=== PATIENT | male | born 1955 | race Caucasian/White ===

== ENCOUNTER 2016-11-24 06:25 | Inpatient (IN) | payer BC, OTHER ==
[2016-11-06 10:47] VITALS: BMI 27.0
--- NOTE | 2016-11-06 11:13 | PAT Medication Instructions ---
Service Date November 06, 2016. Current Home Medication List Dutasteride-Tamsulosin Hcl (Justyna), 1 TAB PO QPM Mometasone Furoate (Asmanex 120 Metered Doses), 1 PUFF INH HS Naproxen (Aleve), 220 MG PO BID PRN for Pain [Relief Packet], 1 PKT PO BID Medication Instructions For Your Scheduled Surgery - Hold the following medications 2 weeks prior to surgery: Relief Packet 1 PKT PO BID - Hold the following medications 7-10 days prior to surgery per surgeon instructions: Naproxen (Aleve), 220 MG PO BID PRN for Pain - Take the following medications the morning of surgery with a sip of water: Tylenol (if needed) - Take the following medications as scheduled the night before surgery: Dutasteride-Tamsulosin Hcl (Justyna), 1 TAB PO QPM Mometasone Furoate (Asmanex 120 Metered Doses), 1 PUFF INH HS Tylenol (if needed) If you have any questions please call us at [phone] or [phone] ( [place]) or [phone]
--- NOTE | 2016-11-06 12:04 | DIAGNOSTIC IMAGING REPORT ---
TWO VIEW CHEST CLINICAL HISTORY: Preoperative examination. FINDINGS: PA and lateral chest radiographs are compared to study dated 11/23/2012. The cardiomediastinal silhouette is unremarkable. There is atherosclerotic calcification of the thoracic aorta. The lungs appear hyperinflated and hyperlucent with flattening the diaphragm. There is increased retrosternal clear space and the appearance suggests obstructive physiology. Airspace consolidation or pleural effusion is identified. There is no pneumothorax. The skeletal structures appear osteopenic. Degenerative change and scoliosis are noted in the thoracic spine. IMPRESSION: Findings suggest obstructive physiology. There is no active disease in the chest. Electronically signed by: Maykel Mills M.D. 11/06/2016 12:03 PM Dictated Date/Time: 11/06/2016 12:02 PM
[2016-11-06 12:45] LABS: BASO % 0.6 %; BASO ABS # 0.04 K/uL (0-0.2); COMPLETE YES; EOS % 4.6 %; HEMATOCRIT 44.2 % (42-52); IG% 0.3 %; LYMPH % 24.7 %; LYMPH ABS # 1.63 K/uL (1.2-3.4); MEAN CELL VOLUME 92.9 fL (80-100); MEAN CORPUSCULAR HEMOGLOBIN 31.5 pg (25-34); MEAN CORPUSCULAR HGB CONC 33.9 g/dl (32-36); MEAN PLATELET VOLUME 9.8 fL (7.4-10.4); MONO % 12.1 %; NEUT % 57.7 %; PLATELET COUNT 236 K/uL (130-400); RED BLOOD COUNT 4.76 M/uL (4.7-6.1); WHITE BLOOD COUNT 6.59 K/uL (4.8-10.8)
[2016-11-06 12:59] LABS: PROTHROMBIN TIME (PATIENT) 10.5 SECONDS (9.0-12.0)
[2016-11-06 13:01] LABS: URINE APPEARANCE CLEAR (CLEAR); URINE BILIRUBIN NEG (NEG); URINE COLOR YELLOW; URINE NITRITE NEG (NEG); URINE PH 5.5 (4.5-7.5); URINE SPECIFIC GRAVITY 1.027 (1.000-1.030); UROBILINOGEN NEG (NEG); ZZUR CULT IF INDIC CLEAN CATCH NO
[2016-11-06 13:10] LABS: MANUAL MICROSCOPIC REQUIRED? NO; REVIEW REQ? NO
[2016-11-06 13:20] LABS: BUN/CREATININE RATIO 25.3 (10-20); CALCIUM 8.2 mg/dl (8.5-10.1); CREATININE 0.8 mg/dl (0.60-1.40); POTASSIUM 4.4 mmol/L (3.5-5.1)
--- NOTE | 2016-11-21 15:25 | HISTORY & PHYSICAL EXAMINATION ---
DATE OF ADMISSION: 11/24/2016 CHIEF COMPLAINT: Left hip pain. HISTORY OF PRESENT ILLNESS: Mr. Guillaume is a 61-year-old male with a multiple year history of left hip pain. He rates his pain at 10/10. He has pain with his daily activities. He has limited standing and walking tolerance. Pain is worse with weightbearing. The patient has had injections, NSAIDs and home exercise program. He has failed conservative treatment and is scheduled for left hip replacement. PAST MEDICAL HISTORY: Asthma. He denies heart disease, diabetes or DVT. PAST SURGICAL HISTORY: Tonsillectomy, appendectomy, bilateral knee replacement, and bilateral carpal tunnel repair. SOCIAL HISTORY: He rarely drinks alcohol. Denies tobacco use. He lives in a 2-story home. He is and works and self-employed as a contractor. FAMILY HISTORY: Positive for DVT in his brother. MEDICATIONS: 0.5 mg daily, Aleve 2 pills daily, Asmanex Twisthaler and lidocaine cream. ALLERGIES: SULFA. REVIEW OF SYSTEMS: See HPI. Ten other systems reviewed, all negative. PHYSICAL EXAMINATION: VITAL SIGNS: Height 5 feet 11 inches, weight 195 pounds, and BMI 27. GENERAL: This is a well-developed and well-nourished male who is alert and oriented x3. Mood and affect are appropriate. HEENT: Normocephalic and atraumatic. Mucous membranes are moist and intact. NECK: Supple without lymphadenopathy. HEART: Regular rate and rhythm without murmurs, rubs or gallops. LUNGS: Clear to auscultation without wheezes or rhonchi. ABDOMEN: Soft and nontender. Bowel sounds are equal and active. EXTREMITIES: No ecchymosis, redness or warmth. Thigh and calf are soft and nontender. Log roll of the hip reproduces the pain in the groin. Range of motion is decreased. He is neurovascularly intact with +5/5 strength. X-RAY EXAMINATION: AP and lateral views show joint space narrowing and osteophyte formation. IMPRESSION: Degenerative joint disease, left hip. PLAN: The patient will be admitted for a left total hip arthroplasty. We will plan on aspirin for DVT prophylaxis. MTDD
[2016-11-24] VITALS (9 sets, daily range): BP systolic 109–146; BP diastolic 69–73; PULSE 50–61; TEMP 36.3–36.7; O2SAT 95–97; Ht 180.3 cm; Wt 87.5 kg
[~2016-11-24] VITALS: Ht 180.3 cm; Wt 87.5 kg
[~2016-11-24 06:25] MED LIST: ACETAMINOPHEN 500 MG TAB PO SCH; CEFAZOLIN 2000 MG/60 ML D5W 60 ML IV SCH; DEXAMETHASONE 4 MG TAB PO SCH; DUTACAP PO; FAMOTIDINE 20 MG TAB PO SCH; GABAPENTIN 300 MG CAP PO SCH; LACTATED RINGER'S 1000ML 1,000 ML IV SCH; LACTATED RINGER'S 1000ML 500 ML IV ONE; LACTATED RINGER'S 1000ML IV SCH; METOCLOPRAMIDE HCL 10 MG TAB PO SCH; MOME220A INH; NAPR1TAB9 PO; OXYCODONE HCL 10 MG TABCR (OXYCONTIN) PO SCH; POLYMYXIN B SULFATE 100,000 UNITS in NSS 100ML IR SCH; RELIEF PO; ROPIVACAINE 5MG/ML 30 ML 150 MG, BUPIVACAINE/EPINEPHR 0.5% MPF 30 ML, KETOROLAC TROMETH... INFIL SCH; VANCOMYCIN INJ 400 MG in NSS 100ML IR SCH
[2016-11-24] MEDS ORDERED: BUPIVACAINE 0.5 % 5 MG/1 ML PF 10ML VIAL ONE (07:00)
[2016-11-24] MEDS ORDERED: MIDAZOLAM HCL 1 MG/ML 2ML VIAL ONE ×3 (07:20→14:47)
[2016-11-24] MEDS ORDERED: FENTANYL CITRATE INJ 50 MCG/1 ML 2 ML VIAL ONE (07:21)
[2016-11-24] MEDS ORDERED: ONDANSETRON INJ 2 MG/ML 2 ML VIAL IV PRN ×2 (07:30→11:15)
[2016-11-24] MEDS ORDERED: ATROPINE SULFATE 0.1 MG/ML 5ML SYR IV PRN (07:30)
[2016-11-24] MEDS ORDERED: FENTANYL CITRATE INJ 50 MCG/1 ML 2 ML VIAL IV PRN (07:30)
[2016-11-24] MEDS ORDERED: EpHEDrine SULFATE INJ 50 MG/ML AMP IV PRN (07:30)
--- NOTE | 2016-11-24 08:39 | History & Physical Bridge Note ---
H&P Re-Evaluation Bridge Note: I have examined the patient, reviewed the History & Physical and in the interval since the performance of the History & Physical I have noted the following changes of clinical significance: No changes noted
[2016-11-24] MEDS ORDERED: POVIDONE-IODINE OP SOLN 30 ML BTL ONE (09:13)
[2016-11-24] MEDS ORDERED: ORTHO JOINT ANESTHETIC ONE (09:13)
[2016-11-24] MEDS ORDERED: BACITRACIN 50000 UNIT VIAL ONE (09:13)
[2016-11-24] MEDS: TRANEXAMIC ACID INJ 1,000 MG in SODIUM CHLORIDE 0.9% 100ML 100 ML IV SCH ×2 (09:26→14:04)
--- NOTE | 2016-11-24 11:04 | [facility] Post Operative Brief Note ---
Immediate Operative Summary Operative Date Nov 24, 2016. Pre-Operative Diagnosis Left Hip Degenerative Joint Disease Post-Operative Diagnosis Left Hip Degenerative Joint Disease Procedure(s) Performed Left Total Hip Arthroplasty, Direct Anterior Approach Surgeon Dr. Eulalio Topete [employer] Surgeon(s) Julia Valdovinos PA-C Estimated Blood Loss 75mL Findings djd Specimens A: Left Femoral Head Complication(s) None Disposition Recovery Room / PACU
[2016-11-24] MEDS ORDERED: BISACODYL 10 MG SUPP PR PRN (11:15)
[2016-11-24] MEDS ORDERED: OXYCODONE HCL IR 5 MG TAB (IMMEDIATE RELEASE) PO PRN (11:15)
[2016-11-24] MEDS ORDERED: METOCLOPRAMIDE HCL INJ 5 MG/ML 2 ML VIAL IV PRN (11:15)
[2016-11-24] MEDS ORDERED: MAGNESIUM HYDROXIDE SUSP 30 ML UDC PO PRN (11:15)
[2016-11-24] MEDS ORDERED: ZOLPIDEM TARTRATE 5 MG TAB PO PRN (11:15)
[2016-11-24] MEDS ORDERED: DiphenhydrAMINE HCL 50 MG/ML VIAL IV PRN (11:15)
[2016-11-24] MEDS ORDERED: MoRPHine SULFATE 2 MG/ML CARP IV PRN (11:15)
[2016-11-24] MEDS ORDERED: TRAMADOL HCL 50 MG TAB PO PRN (11:15)
[2016-11-24] MEDS ORDERED: SOD PHOSPHATE/SOD BIPHOSPHATE ENEMA 132 ML BTL PR PRN (11:15)
[2016-11-24] MEDS ORDERED: ALUMINUM/MAGNESIUM/SIMETH (MAALOX MAX) 30 ML UDC PO PRN (11:15)
--- NOTE | 2016-11-24 11:53 | DIAGNOSTIC IMAGING REPORT ---
INTRAOPERATIVE LEFT HIP SINGLE VIEW CLINICAL HISTORY: Hip arthroplasty COMPARISON STUDY: No previous studies for comparison. FINDINGS: 13 seconds of fluoroscopic time was utilized. A single fluoroscopic spot image was provided for interpretation. There are postsurgical changes of a total left hip arthroplasty. There is no evidence of dislocation. IMPRESSION: Intraoperative radiograph demonstrating a total left hip arthroplasty. Electronically signed by: Mann Clemons M.D. 11/24/2016 11:52 AM Dictated Date/Time: 11/24/2016 11:51 AM
--- NOTE | 2016-11-24 12:05 | DIAGNOSTIC IMAGING REPORT ---
LEFT PELVIS/UNILATERAL HIP 1 VIEW CLINICAL HISTORY: IN PACU - A/P PELVIS and LATERAL HIP INCLUDING ALL OF IMPLANT postoperative change COMPARISON: None. DISCUSSION: Evidence for a total left hip prosthetic. Good contact between metallic prosthetic and underlying bone. Lucency traversing the mid inferior aspect of the left pubic ring. Although possible secondary to overlap artifact, nondisplaced cortical fracture must be considered. Oblique filming of the a pelvic region is suggested. There is no evidence for soft tissue swelling. IMPRESSION: 1. Total left hip prosthetic in good position. 2. Artifact versus nondisplaced cortical fracture left pubic ring. Oblique images of the pelvis are suggested as follow-up. Electronically signed by: Helder Bradley M.D. 11/24/2016 12:04 PM Dictated Date/Time: 11/24/2016 12:02 PM
--- NOTE | 2016-11-24 12:49 | Anesthesiology Progress Note ---
Anesthesia Post Op Note Date & Time Nov 24, 2016 at 12:49 Vital Signs Pain Intensity: 0 Vital Signs Past 12 Hours Date Time Temp Pulse Resp B/P (MAP) Pulse Ox O2 Delivery O2 Flow Rate FiO2 11/24/16 12:36 97/57 11/24/16 12:35 52 17 98 11/24/16 12:35 52 17 11/24/16 12:31 100/54 11/24/16 12:30 50 15 11/24/16 12:30 49 15 99 11/24/16 12:26 92/50 11/24/16 12:25 53 14 11/24/16 12:25 52 14 98 11/24/16 12:21 109/57 11/24/16 12:20 59 11 99 11/24/16 12:20 59 11 11/24/16 12:16 102/57 11/24/16 12:15 48 14 11/24/16 12:15 47 14 99 11/24/16 12:11 100/58 11/24/16 12:10 50 17 11/24/16 12:10 53 17 99 11/24/16 12:06 98/55 11/24/16 12:05 58 14 99 11/24/16 12:05 56 14 11/24/16 12:02 94/55 11/24/16 12:01 72/56 11/24/16 12:00 51 14 98 11/24/16 12:00 53 14 11/24/16 11:59 56 13 99 11/24/16 11:59 58 13 11/24/16 11:56 116/59 11/24/16 11:54 50 14 98 11/24/16 11:54 47 14 11/24/16 11:51 105/67 11/24/16 11:49 51 16 98 11/24/16 11:49 51 16 11/24/16 11:46 109/68 11/24/16 11:44 54 15 11/24/16 11:44 49 15 99 11/24/16 11:41 101/62 11/24/16 11:39 54 15 11/24/16 11:39 56 15 100 11/24/16 11:36 113/57 11/24/16 11:34 53 12 11/24/16 11:34 53 12 100 11/24/16 11:31 104/57 11/24/16 11:29 66 16 94 11/24/16 11:29 63 16 11/24/16 11:26 121/65 11/24/16 11:25 119/70 11/24/16 11:24 70 96 11/24/16 11:24 36.6 70 12 119/70 96 Mask 10 11/24/16 11:24 70 11/24/16 07:08 36.6 59 18 146/72 Room Air 98 Notes Mental Status: alert / awake / arousable, participated in evaluation Pt Amnestic to Procedure: Yes Nausea / Vomiting: adequately controlled Pain: adequately controlled Airway Patency, RR, SpO2: stable & adequate BP & HR: stable & adequate Hydration State: stable & adequate Neuraxial Anesthesia: was administered, sensory block is resolving Anesthetic Complications: no major complications apparent
[2016-11-24] MEDS: D5W AND 1/2NSS + 20MEQ KCL 1,000 ML IV SCH (13:52)
[2016-11-24] MEDS ORDERED: PROPOFOL IV EMULSION 10 MG/ML 20 ML VIAL IV ONE (14:48)
[2016-11-24] MEDS: KETOROLAC TROMETHAMINE 30 MG/ML VIAL IV. SCH ×2 (15:30→21:06)
[2016-11-24] MEDS ORDERED: TRANEXAMIC ACID INJ 1,000 MG in SODIUM CHLORIDE 0.9% 100ML 100 ML IV ONE (17:00)
--- NOTE | 2016-11-24 17:34 | OPERATIVE REPORT ---
DATE OF OPERATION: 11/24/2016 PREOPERATIVE DIAGNOSIS: Degenerative arthritis, left hip. POSTOPERATIVE DIAGNOSIS: Same. PROCEDURE: Left total hip replacement. SURGEON: Eulalio Topete MD CERTIFIED RESIDENTIAL MEDICATION AIDE: LISA Norris ANESTHESIA: Spinal. BLOOD LOSS: 75 mL. REPLACEMENT FLUIDS: 1800 mL of crystalloid. DRAINS: Hemovacs x2. CULTURES: None. COMPLICATIONS: None. COMPONENTS USED: [employer] Polar hip system: Acetabulum size 52, femur size 6 standard offset, femoral head 0, and neck length 36 mm. NOTE: LISA Norris was present and assisted throughout due to the complicated nature of this case. She helped with preparation and set up, first assisted throughout and personally closed the fascial, subcutaneous and skin layers and applied the postoperative dressing. DESCRIPTION OF PROCEDURE: Following satisfactory spinal, the patient was supine. The left leg was placed in traction and the right leg in the well leg murillo. The left leg was prepared with ChloraPrep and draped sterilely. Following a surgical time-out, an anterior approach was performed in the interval between the sartorius and tensor muscles. Circumflex femoral vessels were identified and ligated. An anterior capsulotomy was performed exposing the arthritic femoral neck and head. Femoral neck and head were trimmed and removed. The acetabular self-retaining retractor was placed. Acetabular reaming was completed and a 52 shell was impacted into an anatomic position under fluoroscopy and secured with a dome screw. Local anesthetic was placed followed by irrigation and a polyethylene liner. A large inferior osteophyte was removed. The femur was placed in a position of external rotation, extension and adduction. Femoral canal was sounded and prepared up to a size 6. A trial reduction with a 0 neck length head using fluoroscopy showed good fit and fill of the proximal canal and yarsanism of leg lengths using fluoroscopy for landmarks. The hip was dislocated. The trial component was removed. The final implant was placed. The hip was irrigated and reduced. Fluoroscopy confirmed similar position. A Betadine soak was performed. After 3 minutes, the Betadine was irrigated. The capsule was closed with 1-0 Vicryl interrupted. A drain was placed. The fascia was closed with a running suture of 1 Vicryl, the subcutaneous tissues with 2-0 Vicryl and skin with a running subcuticular stitch of 3-0 V-Loc. Dermabond and a dry dressing were applied. The patient was returned to his bed in stable condition. I attest to the content of the Intraoperative Record and any orders documented therein. Any exception s are noted below.
[2016-11-24] MEDS: CEFAZOLIN IV 2,000 MG in DEXTROSE 5% 50ML 50 ML IV SCH (19:01)
[2016-11-24] MEDS ORDERED: MOMETASONE FUROATE 14 PUFF/1 INHALER INH SCH (21:00)
[2016-11-24] MEDS ORDERED: SENNA 8.6 MG TAB PO SCH (21:00)
[2016-11-24] MEDS: ACETAMINOPHEN 500 MG TAB PO SCH (21:07)
[2016-11-24] MEDS: ASPIRIN 81 MG ECTAB PO SCH (21:08)
[2016-11-25] MEDS: D5W AND 1/2NSS + 20MEQ KCL 1,000 ML IV SCH ×2 (00:14→08:17)
[2016-11-25] MEDS: CEFAZOLIN IV 2,000 MG in DEXTROSE 5% 50ML 50 ML IV SCH (02:21)
[2016-11-25 02:49] VITALS: BP 121/65; PULSE 62; TEMP 36.9; O2SAT 98
[2016-11-25] MEDS: KETOROLAC TROMETHAMINE 30 MG/ML VIAL IV. SCH ×2 (04:16→09:55)
[2016-11-25] MEDS: ACETAMINOPHEN 500 MG TAB PO SCH ×2 (05:43→14:00)
[2016-11-25 07:31] LABS: BASO % 0.1 %; BASO ABS # 0.01 K/uL (0-0.2); COMPLETE YES; EOS % 0.5 %; HEMATOCRIT 40.2 % (42-52); IG% 0.3 %; LYMPH % 10.4 %; LYMPH ABS # 1.56 K/uL (1.2-3.4); MEAN CORPUSCULAR HGB CONC 34.8 g/dl (32-36); MEAN PLATELET VOLUME 9.3 fL (7.4-10.4); MONO % 11.9 %; NEUT % 76.8 %; PLATELET COUNT 228 K/uL (130-400); RED BLOOD COUNT 4.37 M/uL (4.7-6.1); WHITE BLOOD COUNT 14.96 K/uL (4.8-10.8)
[2016-11-25 08:02] VITALS: BP 130/70; PULSE 53; TEMP 36.6; O2SAT 99
[2016-11-25] MEDS ORDERED: ACET-1138 PO (08:02)
[2016-11-25] MEDS ORDERED: SNK PO (08:02)
[2016-11-25] MEDS ORDERED: ASPEC81 PO (08:02)
[2016-11-25] MEDS ORDERED: RXC5 PO (08:02)
[2016-11-25] MEDS ORDERED: ONDA8TAB6 PO (08:02)
--- NOTE | 2016-11-25 08:02 | Discharge Instructions ---
Discharge Instructions Date of Service Nov 25, 2016. Admission Reason for Admission: Left Hip Degenerative Arthritis Discharge Discharge Diagnosis / Problem: sp left total hip, direct anterior Discharge Goals Goal(s): Decrease discomfort, Improve function, Increase independence Activity Recommendations Activity Limitations: per Instructions/Follow-up section . Instructions / Follow-Up Instructions / Follow-Up ACTIVITY RECOMMENDATIONS: SELF CARE INSTRUCTIONS AFTER TOTAL HIP REPLACEMENT : Direct Anterior Approach Until the incision and soft tissues around your hip have healed, there is a possibility that the hip prosthesis could dislocate. A. Hip flexion ( Up & Down out of chair or steps ) may be difficult. This is normal. B. Numbness in front of the thigh is also normal for a few weeks. C. Use hand rails when walking on stairs. D. Wear low heeled shoes with non-slip soles. E. Be sure that your floors are free of things that could trip you - throw rugs , electrical cords, small objects. Avoid wet and waxed floors, especially with crutches and canes. F. Try to walk several times a day with rest periods between. G. Continue with all the exercises taught to you in the hospital. Again, make walking a part of your daily routine. SPECIAL CARE INSTRUCTIONS: VERY IMPORTANT TO READ AND REVIEW A. You may still be at risk for phlebitis and blood clots. 1. Wear surgical stockings (ISABELLE hose) for 2 weeks after surgery to improve circulation and reduce swelling. 2. Take Aspirin 81mg twice daily for 4 weeks or as directed by your doctor. This is your blood thinner. 3. High risk patients may be prescribed a stronger blood thinner if necessary. 4. If you are on Coumadin normally, your family doctor/ethyl blender should monitor your blood work. Expect a phone call the day of or the day after bloodwork is drawn to adjust your dosage. B. You must take antibiotics before having dental work, bladder, bowel and other surgery. Your doctor will provide you with a permanent card to carry describing precautions. C. Call [facility] [place] if you have a fever, redness or swelling around the incision, cloudy drainage from incision, or sudden increase in pain in your hip, not relieved by your regular pain medication. D. Please call the office at if you have any concerns or questions about your operation or recovery. * YOU MAY SHOWER, NO TUB BATHS UNTIL CLEARED BY YOUR DOCTOR. - Keep an extra close eye on the top portion of your incision. Be sure to keep clean & dry. * WEAR ISABELLE HOSE 20 HOURS PER DAY FOR 2 WEEKS. * YOU MAY PROGRESS FROM A WALKER, TO A CANE, TO INDEPENDENT AT YOUR OWN PACE. * MOST PATIENTS WILL HAVE HOME NURSING FOR THERAPY. IF YOU DECIDE TO DO OUTPATIENT PHYSICAL THERAPY, PLEASE SCHEDULE THIS 3 TIMES PER WEEK. * DERMABOND Prineo- This is a mesh tape dressing that is covered with glue. It should remain in place until the incision is properly healed, usually 10-14 days. This dressing is designed to naturally slough off. You may trim the excess mesh tape as it peels off. Incision may be briefly wet in a shower. Dry immediately by blotting with a clean, dry towel. Do not bath or swim until instructed by your doctor. Do not scratch, rub, or pick at the dressing. Do not apply any topical ointments or lotions until dressing is completely removed and/or instructed by your doctor. There may be a small piece of suture material at one end of your incision. Do not pull or trim this. If it is bothersome or catching on clothing, you may cover it with a band-aid. FOLLOW UP VISIT: If appointment is not already scheduled: Please call [facility] [place] to make a follow-up appointment for 2 weeks after your surgery at . Current Hospital Diet Patient's current hospital diet: Regular Diet Discharge Diet Recommended Diet: Regular Diet Procedures Procedures Performed: Left Total Hip Arthroplasty, Direct Anterior Approach Pending Studies Studies pending at discharge: no Medical Emergencies . Who to Call and When: Medical Emergencies: If at any time you feel your situation is an emergency, please call 911 immediately. . Non-Emergent Contact Non-Emergency issues call your: Surgeon . "Provider Documentation" section prepared by Julia Valdovinos. . VTE Core Measure Inpt VTE Proph given/why not?: Other Anticoagulation, T.E.D. Stockings, SCD's [place] Drug Monitoring Program Search Results: patient reviewed within database
[2016-11-25 08:03] LABS: CREATININE 0.96 mg/dl (0.60-1.40); POTASSIUM 4.3 mmol/L (3.5-5.1)
[2016-11-25] MEDS: ASPIRIN 81 MG ECTAB PO SCH (08:17)
--- NOTE | 2016-11-25 08:55 | DISCHARGE SUMMARY ---
DATE OF DISCHARGE: 11/25/2016 DISCHARGE DIAGNOSIS: Degenerative joint disease, left hip. SECONDARY DIAGNOSIS: None. CONSULTS: None. COMPLICATIONS: None. PROCEDURE: The patient underwent a left total hip arthroplasty with Dr. Topete on 11/24/2016. BRIEF HISTORY: Please see previously dictated history and physical. HOSPITAL SUMMARY: The patient was admitted on the above day for the above procedure. Procedure went without complication. Postop day 1, the patient was feeling well without complaints. He denied chest pain or shortness of breath. Vital signs were stable. He was afebrile. Dressing was clean, dry and intact. He was neurovascularly intact. Calves were soft and nontender. Hip was located. Hemovac drained 250 and 125 mL per shift. The patient began physical therapy per protocol. He tolerated this well. He was discharged to home later that day in stable condition. For further review, please see the chart. LABORATORY, X-RAY DATA AND DISCHARGE INSTRUCTIONS: As per chart.
[2016-11-25] MEDS ORDERED: MULTIVITAMIN TAB PO SCH (09:00)
[2016-11-25] MEDS ORDERED: PANTOprazole SOD 40 MG TAB PO SCH (09:00)
[2016-11-25 11:25] VITALS: BP 130/76; PULSE 60; TEMP 36.6; O2SAT 98
[2016-11-25 13:50] VITALS: BP 130/76; PULSE 60; TEMP 36.6; O2SAT 98
== END 2016-11-25 14:25 | disposition home or self-care (01) | DRG 470 ==
LOC: C.ACU 06:25 → C.3E 11:08 → ENRESERV 11:58
PROVIDERS: ADMIT Orthopaedic Surgery; ATTEND Orthopaedic Surgery
PROC: 0SRB0JZ Replacement of Left Hip Joint with Synthetic Substitute, Open Approach (ICD-10-PCS; principal; 2016-11-24 09:30)
DX: M16.12 Unilateral primary osteoarthritis, left hip (principal); J45.909 Unspecified asthma, uncomplicated; Z96.653 Presence of artificial knee joint, bilateral; Z83.2 Family history of diseases of the blood and blood-forming organs and certain disorders involving the immune mechanism